=== PATIENT | female | born 1980 | race Caucasian/White ===

== ENCOUNTER 2016-08-15 16:44 | Outpatient (CLI) ==
[2014-04-09 11:07] VITALS: BMI 28.8
[2016-08-15 17:33] LABS: BASOPHILS # (AUTO) 0.1 K/uL (0-0.2); BASOPHILS % (AUTO) 0.7 % (0.0-3.0); EOSINOPHILS # (AUTO) 0.1 K/ul (0.0-0.7); EOSINOPHILS % (AUTO) 1.4 % (0.0-7.0); HEMATOCRIT 40.6 % (37.0-47.0); HEMOGLOBIN 13.7 g/dl (12.0-16.0); IMMATURE GRANULOCYTE % (AUTO) 0.4 % (0.0-5.0); LYMPHOCYTES # (AUTO) 3.7 K/uL (0.60-3.4); LYMPHOCYTES % (AUTO) 36.7 (10.0-50.0); MEAN CORPUSCULAR HEMOGLOBIN 31.1 pg (27.0-31.0); MEAN CORPUSCULAR HGB CONC 33.7 (31.8-35.4); MEAN CORPUSCULAR VOLUME 92.1 fl (81.0-99.0); MONOCYTES # (AUTO) 0.7 K/uL (0.4-2.0); MONOCYTES % (AUTO) 7.2 (0-10); NEUTROPHILS # (AUTO) 5.5 K/ul (2.0-6.9); NEUTROPHILS % (AUTO) 53.6; PLATELET COUNT 339 10^3/uL (140-440); RED BLOOD COUNT 4.41 10^6/ul (4.20-5.40)
[2016-08-15 17:35] LABS: BILIRUBIN,URINE Negative (NEGATIVE); KETONES,URINE Negative (NEGATIVE); LEUKOCYTE ESTERASE ,URINE Negative (NEGATIVE); NITRITE,URINE Negative (NEGATIVE); PROTEIN,URINE Negative (NEGATIVE); URINE, BLOOD Negative (NEGATIVE)
[2016-08-15 17:37] LABS: ADD URINE MICROSCOPIC NO
[2016-08-15 17:52] LABS: ALANINE AMINOTRANSFERASE 15 U/L (12-78); ALBUMIN/GLOBULIN RATIO 1.18; ALKALINE PHOSPHATASE 43 U/L (42-98); ANION GAP 11.4; ASPARTATE AMINO TRANSFERASE 13 U/L (15-37); BILIRUBIN,DIRECT < 0.10 mg/dL (0.00-0.30); BLOOD UREA NITROGEN 8 mg/dL (7-18); BUN/CREATININE RATIO 9.75; CALCIUM 9.2 mg/dL (8.2-10.2); CARBON DIOXIDE 28 mmol/L (21-32); CHLORIDE 105 mmol/L (98-107); CHOL/HDL RATIO 4.9 (4.5-5.5); CHOLESTEROL 171 mg/dL (0-200); CREATININE 0.82 mg/dL (0.60-1.30); GLUCOSE 79 mg/dL (70-110); HDL CHOLESTEROL 35 mg/dL (35-80); PHOSPHORUS 3.4 mg/dL (2.5-4.9); POTASSIUM 4.4 mmol/L (3.5-5.10); SODIUM 140 mmol/L (136-145); TOTAL PROTEIN 7.4 g/dL (6.4-8.2); TRIGLYCERIDES 208 mg/dL (30-150); VLDL CHOLESTEROL 42 mg/dL (2-30)
== END 2016-08-15 16:45 | disposition home or self-care (01) ==
LOC: LAB 16:44
PROVIDERS: ATTEND Nurse Practitioner
DX: E03.9 Hypothyroidism, unspecified (principal); R25.1 Tremor, unspecified; R53.1 Weakness
CPT/HCPCS: 36415; 80053; 80061; 81001; 82248; 83036; 84100; 84443; 85025

== ENCOUNTER 2017-03-03 22:18 | Emergency (ER) ==
[2017-03-03 22:23] VITALS: BP 114/79; TEMP 97.9; BMI 27.2
[2017-03-03] MEDS ORDERED: TORADOL IM STA (22:45)
[2017-03-03 22:55] LABS: BASOPHILS % (AUTO) 0.4 % (0.0-3.0); EOSINOPHILS # (AUTO) 0.2 K/ul (0.0-0.7); EOSINOPHILS % (AUTO) 2.1 % (0.0-7.0); HEMATOCRIT 38.1 % (37.0-47.0); HEMOGLOBIN 13.1 g/dl (12.0-16.0); IMMATURE GRANULOCYTE % (AUTO) 0.4 % (0.0-5.0); LYMPHOCYTES # (AUTO) 3.2 K/uL (0.60-3.4); LYMPHOCYTES % (AUTO) 33.1 (10.0-50.0); MEAN CORPUSCULAR HEMOGLOBIN 30.8 pg (27.0-31.0); MEAN CORPUSCULAR HGB CONC 34.4 (31.8-35.4); MEAN CORPUSCULAR VOLUME 89.4 fl (81.0-99.0); MONOCYTES # (AUTO) 0.8 K/uL (0.4-2.0); MONOCYTES % (AUTO) 8.4 (0-10); NEUTROPHILS # (AUTO) 5.5 K/ul (2.0-6.9); NEUTROPHILS % (AUTO) 55.6; PLATELET COUNT 363 10^3/uL (140-440); RED BLOOD COUNT 4.26 10^6/ul (4.20-5.40)
[2017-03-03] MEDS ORDERED: TORADOL IVP STA (22:55)
[2017-03-03 23:13] LABS: URINE PREGNANCY INTERNAL QC INTERNAL QC VALID
[2017-03-03 23:20] LABS: ALANINE AMINOTRANSFERASE 16 U/L (12-78); ALBUMIN 3.7 g/dL (3.4-5.0); ALBUMIN/GLOBULIN RATIO 1.03; ALKALINE PHOSPHATASE 54 U/L (42-98); ANION GAP 14.9; ASPARTATE AMINO TRANSFERASE 11 U/L (15-37); BILIRUBIN,TOTAL 0.18 mg/dL (0.00-1.20); BLOOD UREA NITROGEN 7 mg/dL (7-18); BUN/CREATININE RATIO 8.04; CALCIUM 9.4 mg/dL (8.2-10.2); CARBON DIOXIDE 24 mmol/L (21-32); CHLORIDE 106 mmol/L (98-107); CREATINE KINASE 101 U/L; CREATININE 0.87 mg/dL (0.60-1.30); GLUCOSE 100 mg/dL (70-110); POTASSIUM 3.9 mmol/L (3.5-5.10); SODIUM 141 mmol/L (136-145); TOTAL PROTEIN 7.3 g/dL (6.4-8.2)
--- NOTE | 2017-03-03 23:37 | ED.PDOC ---
General ED Provider: Dr. MELINDA QUIROS Chief Complaint: Non-specific Complaint Stated Complaint: Been hurting in left side of the chest and lower ribs, hurts to breath. no injury. Time Seen by Physician: 23:35 Mode of Arrival: Walk-In Information Source: Patient Primary Care Provider: KENDRICK LIU Nursing and Triage Documentation Reviewed and Agree: Yes Cardiovascular Complaint Exam - Chest Pain Complaint/Exam Onset: Sudden Symptoms Are: Still present Timing: Constant Initial Severity: Moderate Current Severity: Severe Location: Reports: Lower sternal, Left lateral Pain Radiates: Reports: None Character: Reports: Sharp Aggravating: Reports: Deep breaths Alleviating: Reports: None Associated Signs and Symptoms: Denies: Diaphoresis, Nausea, Vomiting, Fever, Palpitations, Cough, Hemoptysis, Back pain, Abdominal pain, Dizziness, Short of air, Calf pain, Calf swelling Related Surgical History: Reports: None History of Healthcare-Acquired Pneumonia: Reports: No AMI/ACS Risk Factors: Reports: None TAD Risk Factors: Reports: None Pulmonary Embolism Risk Factors: Reports: None Prior Care for this Complaint: No Recent Stress Test: No Recent Echo/LV Function: No JVD Present: No Subcutaneous Emphysema Present: No Diminshed Breath Sounds: No Bilateral Pulses Present: No Unequal Pulses Noted: No If Risk Factors for AMI/ACS Consider: EKG, Cardiac Enzymes Differential Diagnoses: Chest Wall Pain, Pulmonary Embolism Review of Systems - Review Of Systems Constitutional: Reports: No symptoms Eyes: Reports: No symptoms Ears, Nose, Mouth, Throat: Reports: No symptoms Respiratory: Reports: No symptoms Cardiac: Reports: Chest pain GI: Reports: No symptoms : Reports: No symptoms Musculoskeletal: Reports: No symptoms Skin: Reports: No symptoms Neurological: Reports: No symptoms Endocrine: Reports: No symptoms Hematologic/Lymphatic: Reports: No symptoms All Other Systems: Reviewed and Negative Past Medical History - Past Medical History Previously Healthy: Yes Endocrine: Reports: None Cardiovascular: Reports: None Respiratory: Reports: None Hematological: Reports: None Gastrointestinal: Reports: None Genitourinary: Reports: None Neuro/Psych: Reports: None Musculoskeletal: Reports: None Cancer: Reports: None Last Menstrual Period: 2 months - Surgical History General Surgical History: Reports: None - Family History Family History: Reports: None - Social History Smoking Status: Never smoker Hx Substance Use: No Alcohol Screening: None - Immunizations Tetanus Shot up to Date: Yes Physical Exam - Physical Exam Appearance: Ill-appearing, Obese Pain Distress: Moderate Eyes: RAVI, EOMI, Conjunctiva clear ENT: Ears normal, Nose normal, Oropharynx normal Respiratory: Airway patent (left lower risb tender, no nrash), Breath sounds clear, Breath sounds equal, Respirations nonlabored Cardiovascular: RRR, Pulses normal, No rub, No murmur GI/: Soft, Nontender, No masses, Bowel sounds normal, No Organomegaly Musculoskeletal: Normal strength, ROM intact, No edema, No calf tenderness Skin: Warm, Dry, Normal color Neurological: Sensation intact, Motor intact, Reflexes intact, Cranial nerves intact, Alert, Oriented Psychiatric: Affect appropriate, Mood appropriate Interpretation - Radiology Interpretation Radiology Interpretation By: Radiologist Radiology Results: Positive Exam Interpreted: CT Scan Critical Care Note - Critical Care Note Total Time (mins): 30 Course - Course Hematology/Chemistry: 03/03/17 22:53 03/03/17 22:53 Orders, Labs, Meds: Lab Review 03/03/17 03/03/17 03/03/17 22:25 22:53 22:53 WBC 9.80 RBC 4.26 Hgb 13.1 Hct 38.1 MCV 89.4 MCH 30.8 MCHC 34.4 RDW Coeff of Phyllis 12.2 Plt Count 363 Immature Gran % (Auto) 0.4 Neut % (Auto) 55.6 Lymph % (Auto) 33.1 Beckham % (Auto) 8.4 Eos % (Auto) 2.1 Baso % (Auto) 0.4 Immature Gran # (Auto) 0.0 Neut # 5.5 Lymph # 3.2 Beckham # 0.8 Eos # 0.2 Baso # 0.0 D-Dimer (Manual) Sodium 141 Potassium 3.9 Chloride 106 Carbon Dioxide 24 Anion Gap 14.9 BUN 7 Creatinine 0.87 Estimated GFR (MDRD) 75.00 BUN/Creatinine Ratio 8.04 Glucose 100 Calcium 9.4 Total Bilirubin 0.18 AST 11 L ALT 16 Alkaline Phosphatase 54 Total Creatine Kinase 101 Troponin I < 0.0100 Total Protein 7.3 Albumin 3.7 Globulin 3.6 Albumin/Globulin Ratio 1.03 Urine Test Negative 03/03/17 22:53 WBC RBC Hgb Hct MCV MCH MCHC RDW Coeff of Phyllis Plt Count Immature Gran % (Auto) Neut % (Auto) Lymph % (Auto) Beckham % (Auto) Eos % (Auto) Baso % (Auto) Immature Gran # (Auto) Neut # Lymph # Beckham # Eos # Baso # D-Dimer (Manual) 657.44 Sodium Potassium Chloride Carbon Dioxide Anion Gap BUN Creatinine Estimated GFR (MDRD) BUN/Creatinine Ratio Glucose Calcium Total Bilirubin AST ALT Alkaline Phosphatase Total Creatine Kinase Troponin I Total Protein Albumin Globulin Albumin/Globulin Ratio Urine Test Orders Category Date Time Status EKG-(ED ONLY) Stat CARDIO 03/03/17 22:28 Completed NPO REMINDER: IMAGING ONCE CARE 03/03/17 22:46 Completed ED IV/MEDIPORT/POWERPORT .ONCE EMERGENCY 03/03/17 22:45 Active CBC W/ AUTO DIFF Stat LAB 03/03/17 22:53 Completed COMPREHENSIVE METABOLIC PANEL Stat LAB 03/03/17 22:53 Completed CREATINE KINASE Stat LAB 03/03/17 22:53 Completed D-DIMER Stat LAB 03/03/17 22:53 Completed TROPONIN I Stat LAB 03/03/17 22:53 Completed URINE Stat LAB 03/03/17 22:25 Completed 0.9 % Sodium Chloride [Saline Flush] MEDS 03/03/17 22:45 Ordered 1 syr IVF PRN PRN Cephalexin [Keflex] MEDS 03/04/17 00:31 Stat 500 mg PO ONCE STA Dexamethasone 4 mg/ml Inj [Decadron 4 mg/ml Sdv] MEDS 03/04/17 00:31 Stat 4 mg IM ONCE STA Ketorolac Tromethamine [Toradol] MEDS 03/03/17 22:55 Discontinued 30 mg IVP ONCE STA CT CHEST PE PROTOCOL Stat RADS 03/03/17 22:45 Completed Medications Generic Name Dose Route Start Last Admin Trade Name Freq PRN Reason Stop Dose Admin Sodium Chloride 1 syr 03/03/17 22:45 Saline Flush IVF PRN PRN To flush IV Discontinued Medications Generic Name Dose Route Start Last Admin Trade Name Freq PRN Reason Stop Dose Admin Ketorolac Tromethamine 30 mg 03/03/17 22:55 03/03/17 23:02 Toradol IVP 03/03/17 22:56 30 mg ONCE STA Administration Vital Signs: Temp Pulse Resp BP Pulse Ox 03/03/17 22:20 97.9 F 81 20 114/79 98 GRACE Risk Score GRACE Risk Score: Risk Score Odds of by 30D 0 0.1 (0.1-0.2) 1 0.3 (0.2-0.3) 2 0.4 (0.3-0.5) 3 0.7 (0.6-0.9) 4 1.2 (1.0-1.5) 5 2.2 (1.9-2.6) 6 3.0 (2.5-3.6) 7 4.8 (3.8-6.1) Departure - Departure Time of Disposition: 00:34 Disposition: HOME SELF-CARE Discharge Problem: Pleurisy Instructions: Pleurisy (ED) Condition: Good Pt referred to PMD for follow-up: Yes Additional Instructions: Take medication with food. F/u with PMD in 3-5 days Prescriptions: Cephalexin [Keflex] 500 mg PO Q12HR #20 capsule Hydrocodone/Acetaminophen [[place] 5-325 Tablet] 1 tab PO TID PRN #9 tablet PRN Reason: PAIN Prednisone 10 mg PO BIDWM #14 tablet Allergies/Adverse Reactions: Allergies No Known Allergies Allergy (Unverified 03/03/17 22:22) Home Medications: Ambulatory Orders Norgestimate-Ethinyl Estradiol [[place] 28 Tablet] 1 each PO DAILY 03/03/17 Cephalexin [Keflex] 500 mg PO Q12HR #20 capsule 03/04/17 Hydrocodone/Acetaminophen [[place] 5-325 Tablet] 1 tab PO TID PRN #9 tablet Prednisone 10 mg PO BIDWM #14 tablet 03/04/17 Disposition Discussed With: Patient, Family
--- NOTE | 2017-03-04 00:08 | CT ---
EXAM: CTA thorax HISTORY: Chest pain COMPARISON: None. FINDINGS: Contiguous axial images obtained through the thorax following uneventful administration in travenous contrast utilizing 3-mm collimation. Sagittal and coronal reconstructions were imaged and reviewed. Source images were utilized to create rotating 3-D the MIP images.. Thoracic inlet is unre markable. There is no evidence of hilar or mediastinal lymphadenopathy. The heart is normal in size without pericardial effusion.. There is no evidence of pulmonary embolus. There is minimal atelecta sis and/or developing infiltrate left lung base.. There has been a prior cholecystectomy. IMPRESSION: No evidence of pulmonary embolus. Atelectasis is developing infiltrate left posterior gutter region. Status post cholecystectomy.
[2017-03-04] MEDS ORDERED: DECADRON 4 MG/ML SDV IM STA (00:31)
[2017-03-04] MEDS ORDERED: KEFLEX PO STA (00:31)
== END 2017-03-04 00:55 | disposition home or self-care (01) ==
LOC: ED 22:18
DX: R09.1 Pleurisy (principal)
CPT/HCPCS: 36415; 80053; 81025; 82550; 84484; 85025; 85379; 93005; 93010; 96372; 96374; 99283

== ENCOUNTER 2017-11-21 18:54 | Emergency (ER) ==
[2017-11-21 19:05] VITALS: BP 132/87; TEMP 99.4; BMI 27.8
[2017-11-21] MEDS ORDERED: TORADOL IVP STA (19:44)
--- NOTE | 2017-11-21 20:32 | CT ---
EXAM: CTA chest with contrast HISTORY: Chest pain, left rib pain, and abdominal pain TECHNIQUE: Multi-slice transaxial helical PE protocol. Multiplanar MIP and 3-D volume rendered imag es are provided. CONTRAST: Intravenous Omnipaque 350, 125 mL COMPARISON: None FINDINGS: The pulmonary arteries are free intraluminal filling defects. No pericardial or pleural ef fusions are appreciated. No suspicious lymphadenopathy is detected. The lungs are clear. No pulmon ángela nodules or masses are detect The solid organs are grossly normal in their visualized portions of the upper abdomen. The bones are free of suspicious osteolytic or osteoblastic lesions. No acute fractures are detected . Specifically, IMPRESSION: 1. No acute cardiopulmonary disease. 2. No pulmonary embolus. 3. No acute rib fractures.
--- NOTE | 2017-11-21 20:35 | CT ---
EXAM: CT abdomen and pelvis with contrast HISTORY: Abdominal pain TECHNIQUE: Multi-slice transaxial helical with coronal and sagittal reformed images CONTRAST: Intravenous Omnipaque 350, 125 mL COMPARISON: CT abdomen/pelvis from 05/09/2012 FINDINGS: The lung bases are free of acute airspace or interstial opacities. The heart size is norm al. There are no pericardial or pleural effusions. The hepatic attenuation is normal relative to the spleen. There are no hepatic lesions. The gallbla dder surgically absent without biliary dilatation. The pancreas and adrenal glands are normal. The spleen has normal size and attenuation. The kidneys have normal size and attenuation. The ureters a re normal. The nonopacified bladder is normal. The uterus adnexa are normal. The appendix is normal. No intestinal obstruction or inflammation are appreciated. The aorta has no rmal caliber and patency. No lymphadenopathy or ascites. The bones are free of suspicious osteolytic or osteoblastic lesions. IMPRESSION: 1. Previous cholecystectomy without biliary dilatation. 2. Normal appendix. Nonobstructive intestinal gas pattern. 3. Normal renal collecting systems.
[2017-11-21] MEDS ORDERED: PROTONIX IV IVP STA (20:39)
--- NOTE | 2017-11-21 20:54 | ED.PDOC ---
General ED Provider: Dr. MARCUS CORTEZ-ER Chief Complaint: Abdominal Pain Stated Complaint: phillip been hurting since yesterday Time Seen by Physician: 18:55 Mode of Arrival: Walk-In Information Source: Patient Exam Limitations: No limitations Primary Care Provider: KENDRICK LIU Nursing and Triage Documentation Reviewed and Agree: Yes Reviewed sepsis parameters & appropriate labs ordered?: Yes System Inflammatory Response Syndrome: Not Applicable Sepsis Protocol: For patient's 13 years and over: Temp is 96.8 and below OR 101 and greater Pulse >90 BPM Resp >20/minute Acutely Altered Mental Status Are patient's symptoms suggestive of a new infection, such as: -Pneumonia -Skin, Soft Tissue -Endocarditis -UTI -Bone, Joint Infection -Implantable Device -Acute Abdominal Infection -Wound Infection -Meningitis -Blood Stream Catheter Infection -Unknown GI Complaint Exam - Abdominal Pain Complaint/Exam Onset: Gradual Duration: 24 hrs Symptoms Are: Still present Timing: Constant Initial Severity: Mild Current Severity: Moderate Location of Pain: Discrete, LUQ Radiates To: Reports: Back, Flank Character: Reports: Dull, Aching, Cramping Aggravating: Reports: None Associated Signs and Symptoms: Denies: Diaphoresis, Fever, Cough, Chest pain, Dizziness, Back pain, Constipation, Blood in stool, Dysuria, Urinary frequency, Decreased urine output, Decreased appetite, Vaginal bleeding, Vaginal discharge , Nausea, Vomiting, Diarrhea, Sore throat, Decreased activity Related Surgical History: Reports: Cholecystectomy Patient Rh Status: Unknown Abdominal Findings: Present: None Differential Diagnoses: Bowel Obstruction, Constipation, Pancreatitis, Ureteral Stone, PUD Quality Indicator For Non-Traumatic Chest Pain/Syncope: EKG Performed Review of Systems - Review Of Systems Constitutional: Reports: No symptoms Eyes: Reports: No symptoms Ears, Nose, Mouth, Throat: Reports: No symptoms Respiratory: Reports: No symptoms Cardiac: Reports: No symptoms GI: Reports: Abdominal pain : Reports: No symptoms Musculoskeletal: Reports: No symptoms Skin: Reports: No symptoms Neurological: Reports: No symptoms Endocrine: Reports: No symptoms Hematologic/Lymphatic: Reports: No symptoms All Other Systems: Reviewed and Negative Past Medical History - Past Medical History Previously Healthy: Yes Endocrine: Reports: None Cardiovascular: Reports: None Respiratory: Reports: None Hematological: Reports: None Gastrointestinal: Reports: None Genitourinary: Reports: None Neuro/Psych: Reports: None Musculoskeletal: Reports: None Cancer: Reports: None Last Menstrual Period: a year - Surgical History General Surgical History: Reports: None - Family History Family History: Reports: None - Social History Smoking Status: Never smoker Hx Substance Use: No Alcohol Screening: None Physical Exam - Physical Exam Appearance: Well-appearing, No pain distress, Well-nourished Pain Distress: Mild Eyes: RAVI, EOMI, Conjunctiva clear ENT: Ears normal, Nose normal, Oropharynx normal Respiratory: Airway patent, Breath sounds clear, Breath sounds equal, Respirations nonlabored Cardiovascular: RRR, Pulses normal, No rub, No murmur GI/: Soft, Nontender, No masses, Bowel sounds normal, No Organomegaly Musculoskeletal: Normal strength, ROM intact, No edema, No calf tenderness Skin: Warm Neurological: Sensation intact Psychiatric: Affect appropriate, Mood appropriate Interpretation - Radiology Interpretation Radiology Interpretation By: Radiologist Radiology Results: Negative Exam Interpreted: CT Scan - EKG Interpretation Time of EKG #1: 20:54 Rate: Normal Rhythm: Sinus Ectopy: None [place]: NL ST Segment: Normal Critical Care Note - Critical Care Note Total Time (mins): 0 Course - Course Hematology/Chemistry: 11/21/17 19:23 11/21/17 19:23 Orders, Labs, Meds: Lab Review 11/21/17 11/21/17 11/21/17 19:23 19:23 19:23 WBC 11.72 H RBC 4.77 Hgb 14.4 Hct 43.0 MCV 90.1 MCH 30.2 MCHC 33.5 RDW Coeff of Phyllis 12.5 Plt Count 376 Immature Gran % (Auto) 0.3 Neut % (Auto) 63.1 Lymph % (Auto) 28.2 Andrews % (Auto) 7.1 Eos % (Auto) 0.9 Baso % (Auto) 0.4 Immature Gran # (Auto) 0.0 Neut # (Auto) 7.4 H Lymph # (Auto) 3.3 Andrews # (Auto) 0.8 Eos # (Auto) 0.1 Baso # (Auto) 0.1 ESR 6 Sodium 137 Potassium 3.6 Chloride 104 Carbon Dioxide 22 Anion Gap 14.6 BUN 9 Creatinine 0.90 Estimated GFR (MDRD) 71.00 BUN/Creatinine Ratio 10.00 Glucose 103 Calcium 9.4 Total Bilirubin 0.8 AST 16 ALT 24 Alkaline Phosphatase 46 Total Creatine Kinase Troponin I Total Protein 7.7 Albumin 4.0 Globulin 3.7 Albumin/Globulin Ratio 1.08 Amylase 43 Lipase 20 Serum , Qual Urine Color Urine Clarity Urine pH Ur Specific [place] Urine Protein Urine Glucose (UA) Urine Ketones Urine Blood Urine Nitrite Urine Bilirubin Urine Urobilinogen Ur Leukocyte Esterase 11/21/17 11/21/17 11/21/17 19:23 19:23 20:36 WBC RBC Hgb Hct MCV MCH MCHC RDW Coeff of Phyllis Plt Count Immature Gran % (Auto) Neut % (Auto) Lymph % (Auto) Andrews % (Auto) Eos % (Auto) Baso % (Auto) Immature Gran # (Auto) Neut # (Auto) Lymph # (Auto) Andrews # (Auto) Eos # (Auto) Baso # (Auto) ESR Sodium Potassium Chloride Carbon Dioxide Anion Gap BUN Creatinine Estimated GFR (MDRD) BUN/Creatinine Ratio Glucose Calcium Total Bilirubin AST ALT Alkaline Phosphatase Total Creatine Kinase 68 Troponin I < 0.0100 Total Protein Albumin Globulin Albumin/Globulin Ratio Amylase Lipase Serum , Qual Negative Urine Color Yellow Urine Clarity Clear Urine pH 6.0 Ur Specific [place] 1.010 Urine Protein Negative Urine Glucose (UA) Negative Urine Ketones Trace Urine Blood Negative Urine Nitrite Negative Urine Bilirubin Negative Urine Urobilinogen 0.2 Ur Leukocyte Esterase Negative Orders Category Date Time Status EKG-(ED ONLY) Stat CARDIO 11/21/17 19:11 Completed NPO REMINDER: IMAGING ONCE CARE 11/21/17 19:12 Completed ED IV/MEDIPORT/POWERPORT .ONCE EMERGENCY 11/21/17 19:11 Active AMYLASE Stat LAB 11/21/17 19:23 Completed CBC W/ AUTO DIFF Stat LAB 11/21/17 19:23 Completed COMPREHENSIVE METABOLIC PANEL Stat LAB 11/21/17 19:23 Completed CREATINE KINASE Stat LAB 11/21/17 19:23 Completed ESR Stat LAB 11/21/17 19:23 Completed LIPASE Stat LAB 11/21/17 19:23 Completed SERUM Stat LAB 11/21/17 19:23 Completed TROPONIN I Stat LAB 11/21/17 19:23 Completed URINALYSIS C & S IF INDICATED Stat LAB 11/21/17 20:36 Completed 0.9 % Sodium Chloride [Saline Flush] MEDS 11/21/17 19:10 Ordered 1 syr IVF PRN PRN Ketorolac Tromethamine [Toradol] MEDS 11/21/17 19:44 Discontinued 30 mg IVP ONCE STA Pantoprazole Sodium [Protonix IV] MEDS 11/21/17 20:39 Discontinued 40 mg IVP ONCE STA CT ABDOMEN/PELVIS W CONTRAST Stat RADS 11/21/17 19:[address] CHEST PE PROTOCOL Stat RADS 11/21/17 19:11 Completed Medications Generic Name Dose Route Start Last Admin Trade Name Freq PRN Reason Stop Dose Admin Sodium Chloride 1 syr 11/21/17 19:10 Saline Flush IVF PRN PRN To flush IV Discontinued Medications Generic Name Dose Route Start Last Admin Trade Name Freq PRN Reason Stop Dose Admin Ketorolac Tromethamine 30 mg 11/21/17 19:44 11/21/17 19:53 Toradol IVP 11/21/17 19:45 30 mg ONCE STA Administration Pantoprazole Sodium 40 mg 11/21/17 20:39 Protonix Iv IVP 11/21/17 20:40 ONCE STA Vital Signs: Temp Pulse Resp BP Pulse Ox 11/21/17 18:55 99.4 F 83 20 132/87 96 Departure - Departure Time of Disposition: 20:54 Disposition: HOME SELF-CARE Discharge Problem: Abdominal pain Instructions: Acute Abdominal Pain (ED) Condition: Good Pt referred to PMD for follow-up: No IPMP verified?: No Additional Instructions: protonix 40mg #30--librax q 6hrs prn pain#21---f/u with your pcp and ask for gi referral Allergies/Adverse Reactions: Allergies No Known Allergies Allergy (Verified 11/21/17 19:06) Home Medications: Ambulatory Orders 1 [No Reported Medications] 11/21/17 Disposition Discussed With: Patient, Family
== END 2017-11-21 22:00 | disposition home or self-care (01) ==
LOC: ED 18:54
DX: R10.12 Left upper quadrant pain (principal)
CPT/HCPCS: 36415; 80053; 81001; 82150; 82550; 83690; 84484; 84703; 85025; 85651; 93005; 93010; 96361; 96374; 96375; 99283

== ENCOUNTER 2017-11-22 10:18 | Outpatient (CLI) ==
[2017-11-21 19:05] VITALS: BMI 27.8
== END 2017-11-22 10:19 | disposition home or self-care (01) ==
LOC: RHC-LAB 10:18
PROVIDERS: ATTEND Nurse Practitioner Family
DX: E78.1 Pure hyperglyceridemia (principal); Z86.39 Personal history of other endocrine, nutritional and metabolic disease
CPT/HCPCS: 36415; 80061; 84443

== ENCOUNTER 2018-01-23 12:50 | Outpatient (CLI) | END 2018-01-23 12:51 | disposition home or self-care (01) | LOC: RHC-LAB 12:50 | PROVIDERS: ATTEND Nurse Practitioner Family | DX: E03.9 Hypothyroidism, unspecified (principal) | CPT/HCPCS: 36415; 84443 ==

== ENCOUNTER 2018-03-19 06:44 | Emergency (ER) ==
[2018-03-19 06:58] VITALS: BP 113/70; TEMP 98.4; BMI 27.7
--- NOTE | 2018-03-19 07:29 | ED.PDOC ---
General ED Provider: Dr. MARCUS CORONA Chief Complaint: Non-specific Complaint Stated Complaint: Dry non productive cough, rt sided posterior chest wall pain. Rt Flank pain with periodic sensation of urge to urinate but does not void. Admits to chills but no elevated temperature. Hx of Pleursy 8-9 months ago. Time Seen by Physician: 07:15 Mode of Arrival: Walk-In Information Source: Patient Exam Limitations: No limitations Primary Care Provider: KELLY LANDON Nursing and Triage Documentation Reviewed and Agree: Yes Does patient meet sepsis criteria?: No System Inflammatory Response Syndrome: Not Applicable Sepsis Protocol: For patient's 13 years and over: Temp is 96.8 and below OR 101 and greater Pulse >90 BPM Resp >20/minute Acutely Altered Mental Status Are patient's symptoms suggestive of a new infection, such as: -Pneumonia -Skin, Soft Tissue -Endocarditis -UTI -Bone, Joint Infection -Implantable Device -Acute Abdominal Infection -Wound Infection -Meningitis -Blood Stream Catheter Infection -Unknown Respiratory Complaint Exam - Respiratory Complaint/Exam Onset/Duration: 4-5 days Symptoms Are: Still present Timing: Intermittent Initial Severity: Moderate Current Severity: Moderate Location: Chest Character: Reports: Non-productive cough, Dry cough Aggravating: Reports: Deep breaths Alleviating: Reports: None Associated Signs and Symptoms: Reports: Chills, Pleuritic chest pain, Sore throat. Denies: Rapid breathing, Dyspnea, Fever, Chest pain, Wheezing, Hemoptysis, Dizziness, Calf pain, Calf swelling, Edema, URI, Nasal congestion, Hoarseness, Sinus discomfort, Vomiting, Weight loss, Decreased oral intake, Increased thirst, Increased appetite, Increased urination Related History: Reports: Similar episode History of Healthcare-Acquired Pneumonia: No Pulmonary Embolism Risk Factors: None Cardiac Risk Factors: Reports: None Pseudomonas Risk Factors: Reports: None Tuberculosis Risk Factors: Reports: None Status Asthmaticus Risk Factors: Reports: None Home Oxygen Use: No Stridor Present: No JVD Present: No Accessory Muscle Use: No Retractions: Not Present Sinus Tenderness: None Grunting Respirations: No Kussmaul Respirations: No Differential Diagnoses: Chest Wall Pain, URI Review of Systems - Review Of Systems Constitutional: Reports: Chills Eyes: Reports: No symptoms Ears, Nose, Mouth, Throat: Reports: No symptoms Respiratory: Reports: Cough Cardiac: Reports: No symptoms GI: Reports: No symptoms : Reports: Urgency Musculoskeletal: Reports: Back pain, Muscle pain Skin: Reports: No symptoms Neurological: Reports: No symptoms Endocrine: Reports: No symptoms Hematologic/Lymphatic: Reports: No symptoms All Other Systems: Reviewed and Negative Past Medical History - Past Medical History Previously Healthy: Yes Endocrine: Reports: None Cardiovascular: Reports: None Respiratory: Reports: None Hematological: Reports: None Gastrointestinal: Reports: None Genitourinary: Reports: None Neuro/Psych: Reports: None Musculoskeletal: Reports: None Cancer: Reports: None Last Menstrual Period: 1 YEAR AGO, PERIODS HAVE ALWAYS BEEN IRREGULAR - Surgical History General Surgical History: Reports: None - Family History Family History: Reports: None - Social History Smoking Status: Never smoker Hx Substance Use: No Alcohol Screening: None - Immunizations Tetanus Shot up to Date: (UNKNOWN) Physical Exam - Physical Exam Appearance: Well-appearing, No pain distress, Well-nourished Ill-appearing: Mild Pain Distress: Mild Eyes: RAVI, EOMI, Conjunctiva clear ENT: Ears normal, Nose normal, Oropharynx normal Respiratory: Airway patent, Breath sounds clear, Breath sounds equal, Respirations nonlabored Cardiovascular: RRR, Pulses normal, No rub, No murmur GI/: Soft, Nontender, No masses, Bowel sounds normal, No Organomegaly Musculoskeletal: Normal strength (Tenderness to palpation of Rt mid to lower thoracic paravertebral muscular region. costal vertebral somatic dysfunction. Bilat sub occipital muscular tenderness and muscular spasm. ), ROM intact, No edema, No calf tenderness Skin: Warm, Dry, Normal color Neurological: Sensation intact, Motor intact, Reflexes intact, Cranial nerves intact, Alert, Oriented, Alert to verbal Psychiatric: Affect appropriate, Mood appropriate Interpretation - Radiology Interpretation Radiology Interpretation By: Radiologist Radiology Results: Negative Exam Interpreted: CXR Critical Care Note - Critical Care Note Total Time (mins): 0 Course - Course Vital Signs: Temp Pulse Resp BP Pulse Ox 03/19/18 06:45 98.4 F 74 18 113/70 98 Departure - Departure Time of Disposition: 09:50 Disposition: HOME SELF-CARE Discharge Problem: URI (upper respiratory infection), Pleurisy, Thoracic region somatic dysfunction, Cervical (neck) region somatic dysfunction Instructions: Upper Respiratory Infection (ED), Pleurisy (ED), Muscle Spasm (ED ) Condition: Good Pt referred to PMD for follow-up: Yes IPMP verified?: No Additional Instructions: Take meds as directed Robitussin DM 2 tsp every 4 hours for control of coughing and congestion Rest and off work today Apply warm moist heat to site of discomfort Allergies/Adverse Reactions: Allergies No Known Allergies Allergy (Verified 03/19/18 06:57) Home Medications: Ambulatory Orders Chlordiazepoxide/Clidinium Br [Librax Capsule] 1 each PO DAILY 11/22/17 Pantoprazole Sodium [Protonix] 40 mg PO DAILY 11/22/17 Azithromycin 250 mg PO DAILY #6 tablet 03/19/18 Azithromycin [Zithromax] 250 mg PO DAILY #6 tablet 03/19/18 Cyclobenzaprine HCl [Flexeril] 5 mg PO TID PRN #20 tablet 03/19/18 Ketorolac Tromethamine [Toradol] 10 mg PO Q6H PRN #20 tablet 03/19/18 Disposition Discussed With: Patient
[2018-03-19] MEDS ORDERED: ROBITUSSIN DM SYRUP PO STA (07:43)
[2018-03-19] MEDS ORDERED: TORADOL IM STA (07:43)
[2018-03-19 08:12] LABS: URINE PREGNANCY TEST NEGATIVE (NEGATIVE)
--- NOTE | 2018-03-19 08:33 | DI ---
Exam: Chest two-view HISTORY: Cough nonproductive. Comparison: 04/09/2014. FINDINGS: Two views of the chest demonstrate moderately expanded lungs with no evidence of pneumonia or edema. The heart is normal in size and configuration. The pulmonary vasculature is not congeste d. The skeletal structures are intact. Mild degenerative findings are noted throughout the spine. IMPRESSION: No acute cardiopulmonary disease.
== END 2018-03-19 10:18 | disposition home or self-care (01) ==
LOC: ED 06:44
DX: J06.9 Acute upper respiratory infection, unspecified (principal); R09.1 Pleurisy; M99.02 Segmental and somatic dysfunction of thoracic region; M99.01 Segmental and somatic dysfunction of cervical region
CPT/HCPCS: 36415; 80053; 81001; 81025; 85025; 85651; 87502; 87651; 93005; 93010; 99283

== ENCOUNTER 2018-07-01 09:41 | Outpatient (CLI) | END 2018-07-01 09:42 | disposition home or self-care (01) | LOC: RHC-LAB 09:41 | PROVIDERS: ATTEND Nurse Practitioner Family | DX: M54.9 Dorsalgia, unspecified (principal); M25.552 Pain in left hip; G89.29 Other chronic pain; E03.9 Hypothyroidism, unspecified | CPT/HCPCS: 36415; 84443 ==

== ENCOUNTER 2018-07-22 15:16 | Outpatient (CLI) ==
--- NOTE | 2018-07-23 08:08 | DI ---
EXAM: Five views of the lumbar spine. History: Lower back pain. Findings: No acute fracture or subluxation of the lumbar spine. Mild to moderate disc space narrowi ng at L5-S1 with small osteophytes. Moderate disc space narrowing seen within the thoracic spine at T8-T9 and T9-T10. There is increased acetabular coverage of the right femoral head which can predis pose to femoral acetabular impingement syndrome. Mild to moderate facet hypertrophy at L5-S1. Afsaneh cystectomy clips. Impression: No acute osseous abnormality of the lumbar spine. Other findings as detailed above
== END 2018-07-22 15:17 | disposition home or self-care (01) ==
LOC: RAD 15:16
PROVIDERS: ATTEND Nurse Practitioner Family
DX: M54.9 Dorsalgia, unspecified (principal); M25.552 Pain in left hip; G89.29 Other chronic pain

== ENCOUNTER 2018-07-23 00:40 | Emergency (ER) ==
[2018-07-23 00:49] VITALS: BP 123/66; TEMP 99.2; BMI 28.3
[2018-07-23] MEDS ORDERED: PHENERGAN 25 MG/ML VIAL IM STA (00:54)
[2018-07-23] MEDS ORDERED: MORPHINE 2 MG/ML SYRINGE IM STA (00:54)
--- NOTE | 2018-07-23 02:00 | CT ---
EXAM: CT of the abdomen and pelvis without contrast. HISTORY: The right lower quadrant pain. ? appendicitis. PROCEDURE: Contiguous axial CT images of the abdomen and pelvis without contrast with coronal and sa gittal reformats. FINDINGS: The liver is normal in appearance. The gallbladder is surgically absent. The pancreas, sp veronica, adrenal glands and kidneys are normal in appearance. The abdominal aorta is normal in appearan ce. There is a 5 mm appendicolith in the proximal appendix and a 6 mm appendicolith in the mid appen marilyn. The appendix is enlarged measuring 10 mm in diameter consistent with acute appendicitis. The s mall bowel and colon are normal in appearance. No free air in the abdomen or pelvis. The bladder is decompressed which limits the evaluation. The uterus is unremarkable. There is trace free fluid in the cul-de-sac. There are degenerative changes in the spine. Impression: Acute appendicitis as described. Trace free fluid in the cul-de-sac. Cholecystectomy. Critical result: I personally discussed Impression #1 with the patient's ER physician on 07/23/2018 at 1:52 a.m.
--- NOTE | 2018-07-23 02:01 | ED.PDOC ---
General ED Provider: Dr. MARCUS CORTEZ-ER Chief Complaint: Abdominal Pain Stated Complaint: im hurting Time Seen by Physician: 00:45 Mode of Arrival: Walk-In Information Source: Patient Exam Limitations: No limitations Primary Care Provider: KELLY LANDON Nursing and Triage Documentation Reviewed and Agree: Yes Does patient meet sepsis criteria?: No System Inflammatory Response Syndrome: Not Applicable Sepsis Protocol: For patient's 13 years and over: Temp is 96.8 and below OR 101 and greater Pulse >90 BPM Resp >20/minute Acutely Altered Mental Status Are patient's symptoms suggestive of a new infection, such as: -Pneumonia -Skin, Soft Tissue -Endocarditis -UTI -Bone, Joint Infection -Implantable Device -Acute Abdominal Infection -Wound Infection -Meningitis -Blood Stream Catheter Infection -Unknown GI Complaint Exam - Abdominal Pain Complaint/Exam Onset: Gradual Duration: 12 hrs Symptoms Are: Still present Initial Severity: Mild Current Severity: Moderate Location of Pain: Discrete, RLQ Character: Reports: Dull, Aching Aggravating: Reports: None Associated Signs and Symptoms: Reports: Nausea Abdominal Findings: Present: Rebound tenderness Differential Diagnoses: Appendicitis Review of Systems - Review Of Systems Constitutional: Reports: No symptoms Eyes: Reports: No symptoms Ears, Nose, Mouth, Throat: Reports: No symptoms Respiratory: Reports: No symptoms Cardiac: Reports: No symptoms GI: Reports: Abdominal pain : Reports: No symptoms Musculoskeletal: Reports: No symptoms Skin: Reports: No symptoms Neurological: Reports: No symptoms Endocrine: Reports: No symptoms Hematologic/Lymphatic: Reports: No symptoms All Other Systems: Reviewed and Negative Past Medical History - Past Medical History Previously Healthy: Yes Endocrine: Reports: None Cardiovascular: Reports: None Respiratory: Reports: None Hematological: Reports: None Gastrointestinal: Reports: None Genitourinary: Reports: None Neuro/Psych: Reports: None Musculoskeletal: Reports: None Cancer: Reports: None Last Menstrual Period: 1 YEAR AGO - Surgical History General Surgical History: Reports: None - Family History Family History: Reports: None - Social History Smoking Status: Never smoker Hx Substance Use: No Alcohol Screening: None - Immunizations Tetanus Shot up to Date: Yes Physical Exam - Physical Exam Appearance: Well-appearing, No pain distress, Well-nourished Pain Distress: Moderate Eyes: RAVI, EOMI, Conjunctiva clear ENT: Ears normal, Nose normal, Oropharynx normal Neck: Supple Respiratory: Airway patent Cardiovascular: RRR, Pulses normal, No rub, No murmur GI/: Soft, Tender Musculoskeletal: Normal strength, ROM intact, No edema, No calf tenderness Skin: Warm, Dry, Normal color Neurological: Sensation intact Psychiatric: Affect appropriate, Mood appropriate Interpretation - Radiology Interpretation Radiology Interpretation By: Radiologist Radiology Results: Positive Exam Interpreted: CT Scan Critical Care Note - Critical Care Note Total Time (mins): 0 Course - Course Hematology/Chemistry: 07/23/18 01:00 07/23/18 01:00 Orders, Labs, Meds: Lab Review 07/23/18 07/23/18 07/23/18 01:00 01:00 01:00 WBC 13.55 H RBC 4.60 Hgb 13.8 Hct 41.8 MCV 90.9 MCH 30.0 MCHC 33.0 RDW Coeff of Phyllis 12.4 Plt Count 406 Immature Gran % (Auto) 0.4 Neut % (Auto) 63.1 Lymph % (Auto) 27.9 Eaton % (Auto) 7.0 Eos % (Auto) 1.2 Baso % (Auto) 0.4 Immature Gran # (Auto) 0.1 Neut # (Auto) 8.6 H Lymph # (Auto) 3.8 H [place] # (Auto) 1.0 Eos # (Auto) 0.2 Baso # (Auto) 0.1 ESR 12 Sodium 143.0 Potassium 4.17 Chloride 103.5 Carbon Dioxide 27.8 Anion Gap 15.87 BUN 8.9 Creatinine 0.81 Estimated GFR (MDRD) 80.00 BUN/Creatinine Ratio 10.98 Glucose 121.7 H Calcium 9.39 Total Bilirubin 0.37 AST 14.4 ALT 17.9 Alkaline Phosphatase 53.5 Total Protein 7.86 Albumin 4.45 Globulin 3.41 Albumin/Globulin Ratio 1.30 Amylase 76.7 Lipase 142.9 Serum , Qual Urine Color Urine Clarity Urine pH Ur Specific [place] Urine Protein Urine Glucose (UA) Urine Ketones Urine Blood Urine Nitrite Urine Bilirubin Urine Urobilinogen Ur Leukocyte Esterase Urine Microscopic WBC Ur Squamous Epith Cells Urine Bacteria Urine Mucus 07/23/18 07/23/18 01:00 01:00 WBC RBC Hgb Hct MCV MCH MCHC RDW Coeff of Phyllis Plt Count Immature Gran % (Auto) Neut % (Auto) Lymph % (Auto) [place] % (Auto) Eos % (Auto) Baso % (Auto) Immature Gran # (Auto) Neut # (Auto) Lymph # (Auto) [place] # (Auto) Eos # (Auto) Baso # (Auto) ESR Sodium Potassium Chloride Carbon Dioxide Anion Gap BUN Creatinine Estimated GFR (MDRD) BUN/Creatinine Ratio Glucose Calcium Total Bilirubin AST ALT Alkaline Phosphatase Total Protein Albumin Globulin Albumin/Globulin Ratio Amylase Lipase Serum , Qual Negative Urine Color Yellow Urine Clarity Clear Urine pH 5.5 Ur Specific [place] >=1.030 Urine Protein 1+ Urine Glucose (UA) Negative Urine Ketones Trace Urine Blood Trace-intact Urine Nitrite Negative Urine Bilirubin Negative Urine Urobilinogen 0.2 Ur Leukocyte Esterase Negative Urine Microscopic WBC 2-5 Ur Squamous Epith Cells 2-5 Urine Bacteria 1+ Urine Mucus 1+ Orders Category Date Time Status TRANSFER TO OUTSIDE FACILITY .TO [facility] 07/23/18 02:07 Active ([place], [place]) WRITE TRANSFER/SBAR NOTE ONCE CARE 07/23/18 02:07 Active DISCHARGE ASSESSMENT ONCE DISCHARGE 07/23/18 02:07 Active WRITE DISCHARGE NOTE ONCE DISCHARGE 07/23/18 02:07 Active IV [ED IV/MEDIPORT/POWERPORT] .ONCE EMERGENCY 07/23/18 02:12 Ordered AMYLASE Stat LAB 07/23/18 01:00 Completed CBC W/ AUTO DIFF Stat LAB 07/23/18 01:00 Completed COMPREHENSIVE METABOLIC PANEL Stat LAB 07/23/18 01:00 Completed ESR Stat LAB 07/23/18 01:00 Completed LIPASE Stat LAB 07/23/18 01:00 Completed SERUM Stat LAB 07/23/18 01:00 Completed URINALYSIS C & S IF INDICATED Stat LAB 07/23/18 01:00 Completed URINE CULTURE Stat LAB 07/23/18 01:33 Received 0.9 % Sodium Chloride [Saline Flush] MEDS 07/23/18 02:12 Ordered 1 syr IVF PRN PRN Morphine Sulfate [Morphine 2 mg/ml Syringe] MEDS 07/23/18 00:54 Discontinued 2 mg IM ONCE STA Piperacillin Sodium/Tazobactam [Zosyn 3.375 gm] 3.375 MEDS 07/23/18 02:12 Ordered gm 0.9 % Sodium Chloride [Sodium Chloride] 50 ml IV ONCE Promethazine HCl [Phenergan 25 mg/ml Vial] MEDS 07/23/18 00:54 Discontinued 25 mg IM ONCE STA CT ABDOMEN/PELVIS WO CONTRAST Stat RADS 07/23/18 00:54 Completed Medications Generic Name Dose Route Start Last Admin Trade Name Freq PRN Reason Stop Dose Admin Piperacillin Sod/Tazobactam 50 mls @ 50 mls/hr 07/23/18 02:12 Sod 3.375 gm/ Sodium Chloride IV 07/23/18 03:11 ONCE STA Sodium Chloride 1 syr 07/23/18 02:12 Saline Flush IVF PRN PRN To flush IV Discontinued Medications Generic Name Dose Route Start Last Admin Trade Name Freq PRN Reason Stop Dose Admin Morphine Sulfate 2 mg 07/23/18 00:54 07/23/18 01:17 Morphine 2 Mg/Ml Syringe IM 07/23/18 00:55 2 mg ONCE STA Administration Promethazine HCl 25 mg 07/23/18 00:54 07/23/18 01:17 Phenergan 25 Mg/Ml Vial IM 07/23/18 00:55 25 mg ONCE STA Administration dr grier asked for i gram of mefoxin before transfer(not available here---will use zosyn) Vital Signs: Temp Pulse Resp BP Pulse Ox 07/23/18 00:41 99.2 F 85 20 123/66 97 Departure - Departure Time of Disposition: 02:01 Disposition: TSF SHORT-TRM HOSP Discharge Problem: Appendicitis Qualifiers: Appendicitis type: acute appendicitis Acute appendicitis type: unspecified acute appendicitis type Qualified Code(s): K35.80 - Unspecified acute appendicitis Instructions: Abdominal Pain (ED) Condition: Good Pt referred to PMD for follow-up: No IPMP verified?: No Allergies/Adverse Reactions: Allergies No Known Allergies Allergy (Verified 07/23/18 00:48) Transfer Form Completed: Yes Disposition Discussed With: Patient
[2018-07-23] MEDS ORDERED: ZOSYN 3.375 GM 3.375 GM in SODIUM CHLORIDE 50 ML IV STA (02:12)
[2018-07-23] MEDS ORDERED: SODIUM CHLORIDE 1,000 ML IV STA (02:48)
== END 2018-07-23 03:21 | disposition short-term general hospital (02) ==
LOC: ED 00:40
DX: K35.80 Unspecified acute appendicitis (principal)
CPT/HCPCS: 36415; 80053; 81001; 82150; 83690; 84703; 85025; 85651; 87086; 96361; 96365; 96372; 99285

== ENCOUNTER 2018-07-23 03:22 | Outpatient (CLI) ==
[2018-07-23 00:49] VITALS: BMI 28.3
== END 2018-07-23 03:44 | disposition short-term general hospital (02) ==
LOC: AMBL 03:22
PROVIDERS: ATTEND Family Medicine
DX: R10.31 Right lower quadrant pain (principal)

== ENCOUNTER 2018-08-01 11:56 | Outpatient (CLI) | END 2018-08-01 11:57 | disposition home or self-care (01) | LOC: RHC-LAB 11:56 → FCC-LAB 11:57 | PROVIDERS: ATTEND Family Medicine | DX: R30.0 Dysuria (principal); Z98.890 Other specified postprocedural states | CPT/HCPCS: 87086 ==

== ENCOUNTER 2018-08-01 14:41 | Outpatient (CLI) ==
--- NOTE | 2018-08-01 15:23 | CT ---
EXAM: CT of the abdomen pelvis with contrast History: Right lower quadrant abdominal pain and groin pain, dysuria, history of appendectomy. Comparison: CT abdomen pelvis 08/20/2018 Technique: Multiplanar CT images through the abdomen pelvis were obtained following administration o f IV contrast Findings: Lung bases are clear. No acute osseous abnormalities. Status post cholecystectomy. No liver or splenic lesions. Pancreas is unremarkable. Adrenal glands are within normal limits. No renal masses. No hydronephrosis. No perinephric stranding. Status p ost appendectomy with minimal residual postoperative inflammation. No free air and no abscess. No b owel obstruction. No bladder wall thickening. No perirectal inflammation. Adnexal structures appea r appropriate for patient's age. No lymphadenopathy. Impression: Status post appendectomy with minimal residual postoperative inflammation in the right l ower quadrant which can be expected. There is no acute intra-abdominal or pelvic process.
== END 2018-08-01 14:42 | disposition home or self-care (01) ==
LOC: RAD 14:41
PROVIDERS: ATTEND Family Medicine
DX: R30.0 Dysuria (principal); Z98.890 Other specified postprocedural states; Z90.49 Acquired absence of other specified parts of digestive tract
CPT/HCPCS: 87086

== ENCOUNTER 2018-08-19 10:59 | Outpatient (CLI) | END 2018-08-19 11:00 | disposition home or self-care (01) | LOC: RHC-LAB 10:59 | PROVIDERS: ATTEND Nurse Practitioner Family | DX: M25.541 Pain in joints of right hand (principal); M25.542 Pain in joints of left hand | CPT/HCPCS: 36415; 85651; 86430 ==

== ENCOUNTER 2018-08-29 16:13 | Outpatient (CLI) | END 2018-08-29 16:14 | disposition home or self-care (01) | LOC: LAB 16:13 | PROVIDERS: ATTEND Nurse Practitioner Family | DX: E03.9 Hypothyroidism, unspecified (principal) | CPT/HCPCS: 36415; 84443 ==

== ENCOUNTER 2018-10-04 08:30 | Outpatient (CLI) | END 2018-10-04 08:31 | disposition home or self-care (01) | LOC: RHC-LAB 08:30 | PROVIDERS: ATTEND Nurse Practitioner Family | DX: F41.9 Anxiety disorder, unspecified (principal); E03.9 Hypothyroidism, unspecified | CPT/HCPCS: 36415; 80053; 80061; 84443; 85025 ==

== ENCOUNTER 2018-10-11 08:49 | Outpatient (CLI) | END 2018-10-11 08:50 | disposition home or self-care (01) | LOC: CAR 08:49 | PROVIDERS: ATTEND Nurse Practitioner Family | DX: F41.9 Anxiety disorder, unspecified (principal); E66.3 Overweight | CPT/HCPCS: 36415; 80053; 84443; 85025; 93005; 93010 ==

== ENCOUNTER 2018-10-21 12:48 | Outpatient (CLI) ==
--- NOTE | 2018-10-23 11:14 | HOLTER ---
PATIENT INFORMATION AND COMMENTS Ordering Physician: KELLY LANDON APRN Indications: CARDIAC ARRHYTHMIA, SHORT OF BREATH, FLUTTERS/CHEST PRESSURE, POSSIBLE MITRAL VALVE PROLAPSE Patient Medications: LEVOTHYROXIN, NEUROTIN __ Pre-procedure Summary: Protocol: Standard Heart Rate Started: 10/21/2018 1311 Minimum: 57 BPM Weight: 190 LBS Ended: 10/22/2018 1311 Maximum: 131 BPM Height: 67" Duration: 24 HOURS Average: 84 BPM _ INTERPRETATIONS/OBSERVATIONS: 1. BASIC RHYTHM: SINUS RATE 60 BPM TO 130 BPM, AVERAGE 85 BPM 2. RARE PREMATURE ATRIAL CONTRACTIONS / PREMATURE VENTRICULAR CONTRACTIONS 3. NO ST-T WAVE CHANGES FROM BASELINE 4. ACTIVITY LOG NOT AVAILABLE MTDD
== END 2018-10-21 12:49 | disposition home or self-care (01) ==
LOC: CAR 12:48
PROVIDERS: ATTEND Nurse Practitioner Family
DX: I49.8 Other specified cardiac arrhythmias (principal)
CPT/HCPCS: 93227

== ENCOUNTER 2018-12-08 18:12 | Emergency (ER) ==
[2018-12-08 18:21] VITALS: BP 123/80; TEMP 99.2; BMI 29.2
--- NOTE | 2018-12-08 18:27 | ED.PDOC ---
General ED Provider: Dr. MARCUS CORTEZ-ER Chief Complaint: Fall Stated Complaint: i fell aNd my right hip hurts and my left ankle hurts Time Seen by Physician: 18:15 Mode of Arrival: Walk-In Information Source: Patient Exam Limitations: No limitations Primary Care Provider: KELLY LANDON Nursing and Triage Documentation Reviewed and Agree: Yes Does patient meet sepsis criteria?: No System Inflammatory Response Syndrome: Not Applicable Sepsis Protocol: For patient's 13 years and over: Temp is 96.8 and below OR 101 and greater Pulse >90 BPM Resp >20/minute Acutely Altered Mental Status Are patient's symptoms suggestive of a new infection, such as: -Pneumonia -Skin, Soft Tissue -Endocarditis -UTI -Bone, Joint Infection -Implantable Device -Acute Abdominal Infection -Wound Infection -Meningitis -Blood Stream Catheter Infection -Unknown Musculoskeletal Complaint Exam - Hip/Pelvis Complaint/Exam Location of Pain: Reports: Right, Hip Mechanism of Injury: Reports: Trauma Onset/Duration: one hour Symptoms Are: Still present Initial Severity: Mild Current Severity: Mild Location: Reports: Discrete (right hip and left ankle) Character: Reports: Dull, Aching, Stiffness Aggravating: Reports: Movement, Weight bearing Alleviating: Reports: None Associated Signs and Symptoms: Denies: Swelling, Redness, Bruising, Fever, Weakness, Dizziness, Syncope, Abdominal pain, Knee pain Pelvis Palpation: Stable Hip/Pelvis Findings: Present: Ecchymosis. Absent: Extremity shortened, Swelling , Erythema, Warmth, Blisters Tenderness: Present: Right, Greater Trochanter NV Bundle Intact Distal to Injury: Yes Differential Diagnoses: Contusion, Fracture Review of Systems - Review Of Systems Constitutional: Reports: No symptoms Eyes: Reports: No symptoms Ears, Nose, Mouth, Throat: Reports: No symptoms Respiratory: Reports: No symptoms Cardiac: Reports: No symptoms GI: Reports: No symptoms : Reports: No symptoms Musculoskeletal: Reports: Back pain, Muscle pain Skin: Reports: No symptoms Neurological: Reports: No symptoms Endocrine: Reports: No symptoms Hematologic/Lymphatic: Reports: No symptoms All Other Systems: Reviewed and Negative Past Medical History - Past Medical History Previously Healthy: Yes Endocrine: Reports: None Cardiovascular: Reports: None Respiratory: Reports: None Hematological: Reports: None Gastrointestinal: Reports: None Genitourinary: Reports: None Neuro/Psych: Reports: None Musculoskeletal: Reports: None Cancer: Reports: None Last Menstrual Period: unknown, - Surgical History General Surgical History: Reports: None - Family History Family History: Reports: None - Social History Smoking Status: Never smoker Hx Substance Use: No Alcohol Screening: None Physical Exam - Physical Exam Appearance: Well-appearing, No pain distress, Well-nourished Pain Distress: Mild Eyes: RAVI, EOMI, Conjunctiva clear ENT: Ears normal, Nose normal, Oropharynx normal Neck: Supple Respiratory: Airway patent, Breath sounds clear, Breath sounds equal, Respirations nonlabored Cardiovascular: RRR, Pulses normal, No rub, No murmur GI/: Soft, Nontender, No masses, Bowel sounds normal, No Organomegaly Musculoskeletal: Limited ROM Skin: Warm, Dry, Normal color Neurological: Sensation intact, Motor intact, Reflexes intact, Cranial nerves intact, Alert, Oriented Psychiatric: Affect appropriate, Mood appropriate Interpretation - Radiology Interpretation Radiology Interpretation By: Radiologist Radiology Results: Negative Critical Care Note - Critical Care Note Total Time (mins): 0 Course - Course Orders, Labs, Meds: Orders Category Date Time Status Air cast [ED SPLINT APPLICATION] .ONCE EMERGENCY 12/08/18 19:35 Ordered ED LUIS WRAP .ONCE EMERGENCY 12/08/18 19:[address] ANKLE LEFT WITHOUT CONTRAST Stat RADS 12/08/18 18:[address] LUMBAR SPINE W/O CONTRAST Stat RADS 12/08/18 18:[address] PELVIS W/O CONTRAST Stat RADS 12/08/18 18:23 Completed Vital Signs: Temp Pulse Resp BP Pulse Ox 12/08/18 18:13 99.2 F 82 20 123/80 98 Departure - Departure Time of Disposition: 19:36 Disposition: HOME SELF-CARE Discharge Problem: Hip pain Qualifiers: Laterality: right Qualified Code(s): M25.551 - Pain in right hip Ankle sprain Qualifiers: Encounter type: initial encounter Involved ligament of ankle: unspecified ligament Laterality: left Qualified Code(s): S93.402A - Sprain of unspecified ligament of left ankle, initial encounter Instructions: Ankle Sprain (ED) Condition: Good Pt referred to PMD for follow-up: Yes IPMP verified?: No Additional Instructions: tylenol or motrin for pain---f/u with pcp Allergies/Adverse Reactions: Allergies No Known Allergies Allergy (Verified 12/08/18 18:19) Disposition Discussed With: Patient, Family
--- NOTE | 2018-12-08 19:29 | CT ---
EXAM: CT scan lumbar spine HISTORY: Fall COMPARISON: None. FINDINGS: Axial images obtained through the lumbar spine utilizing 3-mm collimation. Sagittal and c oronal reconstructions were imaged and reviewed.. The vertebral bodies normal height and alignment. There is no acute fracture or dislocation. There is moderate concentric disc bulge with facet arthr opathy L2-L3. There is central canal and foraminal stenosis at L3 =L4 through L5-S1 IMPRESSION: No acute findings
--- NOTE | 2018-12-08 19:31 | CT ---
Exam: CT of the pelvis without intravenous contrast. Comparison: CT abdomen pelvis performed 08/01/2018. Reason for exam: Fall. FINDINGS: No acute fracture or malalignment. The pelvic ring appears intact. No acute fracture or malalignment is seen in the right or left hip. The femoral heads articulate with the acetabula bilat erally. Degenerative disease is seen with osteophyte formation. The bladder appears grossly unremarkable. Impression: 1. No acute fracture or malalignment is seen within the pelvic ring or either hip. 2. Mild degenerative disease
--- NOTE | 2018-12-08 19:34 | CT ---
EXAM: CT scan left ankle HISTORY: Fall COMPARISON: None. FINDINGS: There is old healed fracture deformity of the distal fibular shaft. The ankle mortise and talar dome are intact. No acute fracture or dislocation. Degenerative spurring is noted dorsally a bout the tarsal navicular. IMPRESSION: No acute findings
== END 2018-12-08 19:45 | disposition home or self-care (01) ==
LOC: ED 18:12
DX: M25.551 Pain in right hip (principal); S93.402A Sprain of unspecified ligament of left ankle, initial encounter; W19.XXXA Unspecified fall, initial encounter
CPT/HCPCS: 99283